=== PATIENT | female | born 1970 | race Hispanic/Latino ===

== ENCOUNTER → 2023-12-01 | Day surgery (SDC) | payer BC ==
[~2023-12-01] MED LIST: CRESTOR10 MG PO; DEXAMETHASONE SOD PHOS INJ 4 MG/ML SDV ONE; FENTANYL CITRATE/PF 100MCG/2 ML INJ ONE; GINGER250 MG PO; GLIMEPIRIDE2 MG PO; IOPAMIDOL 610MG/1ML 300 MG/ML VIAL IV ONE; LANTANOPROST OD; LIDOCAINE HCL 2% LOCAL INJ 5 ML SDV VIAL INJ ONE; LOSARTAN POTASS25 MG PO; MULTI-VITAMIN1 EACH PO; OMEPRAZOLE40 MG PO; ONDANSETRON HCL INJ 2MG/ML 2ML 2 MG/ML VIAL ONE; PIOGLITAZONE HC45 MG PO; PROPOFOL IV EMULSION 10 MG/ML 20 ML VIAL ONE; SEVOFLURANE INHAL SOLN 250 ML PEN BTL ONE; TALTZ SYRI80 MG/1 ML IM; TUMERIC PO; XIGDUO XR 10 M1 EAC1 PO; [UNRECOGNIZED DRUG - OTHER] PO
[2023-12-01] MEDS: GENTAMICIN 80MG/NS 100 ML 200 ML IV ONE (06:10)
[2023-12-01] MEDS: LACTATED RINGER'S 1,000 ML ONE (06:10)
[2023-12-01 06:28] LABS: BASOPHILS # (AUTO) 0.1 (0.0-0.1); BASOPHILS % 0.8 % (0.0-1.0); EOSINOPHILS # (AUTO) 0.5 (0.0-0.4); EOSINOPHILS % 6.4 % (0.0-6.0); HEMATOCRIT 40.7 % (34.2-44.1); HEMOGLOBIN 14.2 g/dL (12.0-16.0); LYMPHOCYTES # (AUTO) 2.2 (1.0-3.2); LYMPHOCYTES % 28.3 % (18.0-39.1); MEAN CORPUSCULAR HEMOGLOBIN 30.9 pg (28-32); MEAN CORPUSCULAR HGB CONC 34.9 g/dL (31-35); MEAN CORPUSCULAR VOLUME 88.5 fL (81-99); MONOCYTES # (AUTO) 0.6 (0.2-0.8); MONOCYTES % 8.4 % (4.4-11.3); NEUTROPHILS # (AUTO) 4.3 (2.1-6.9); PLATELET COUNT 265 x10e3/uL (140-360); RED CELL DISTRIBUTION WIDTH 11.9 % (11.7-14.4)
[2023-12-01 07:04] LABS: ANION GAP 14.6 mmol/L (8-16); CALCIUM 9.3 mg/dL (8.4-10.2); CREATININE, SERUM 0.76 mg/dL (0.57-1.11); POTASSIUM 3.6 mmol/L (3.5-5.1); URIC ACID 3.1 mg/dL (2.6-8.0)
[2023-12-01] MEDS: PHENAZOPYRIDINE HCL 100 MG TAB ONE (09:47)
[2023-12-01] MEDS: ACETAMINOPHEN 1000 MG/100 ML 100 ML IV ONE (09:54)
[2023-12-01] MEDS: FENTANYL CITRATE/PF 100MCG/2 ML INJ ONE (10:02)
[2023-12-01 10:10] VITALS: TEMP 97.4
[2023-12-01 10:30] VITALS: BP 146/89; PULSE 65; RESP 16; O2SAT 100
[2023-12-03 11:13] LABS: CALCIUM 9.3 mg/dL (8.7-10.2)
== END | disposition home or self-care (01) ==
LOC: OR 05:36
PROVIDERS: ATTEND Urology
DX: N13.2 Hydronephrosis with renal and ureteral calculous obstruction (principal); N39.0 Urinary tract infection, site not specified; N95.2 Postmenopausal atrophic vaginitis; R81 Glycosuria; E11.9 Type 2 diabetes mellitus without complications; I10 Essential (primary) hypertension; E78.5 Hyperlipidemia, unspecified; K21.9 Gastro-esophageal reflux disease without esophagitis; Z88.1 Allergy status to other antibiotic agents; Z88.0 Allergy status to penicillin; Z88.2 Allergy status to sulfonamides; Z79.84 Long term (current) use of oral hypoglycemic drugs; Z79.899 Other long term (current) drug therapy
CPT/HCPCS: 36415; 50590; 74018; 80048; 83970; 84550; 85025; 87086; 93005; C1758; C1769; C2617; J1100; J1580; J2001; J2405

== ENCOUNTER → 2024-03-10 | Day surgery (SDC) | payer BC ==
[~2024-03-10] MED LIST changes: +ACETAMINOPHEN 1000 MG/100 ML IV ONE; +DEXMEDETOMIDINE HCL 200 MCG/2 ML VIAL ONE; +DEXTROSE 5% 250ML 250 ML IV ONE; +FAMOTIDINE 20 MG/2 ML VIAL IV ONE; +GENTAMICIN 80MG/NS 100 ML 200 ML IV ONE; +MIDAZOLAM HCL 2 MG/2 ML VIAL ONE; +PANTOPRAZOLE SO40 MG PO; +TRICOR145 MG PO; +TURMERIC CURCU1 EACH PO
[2024-03-10 13:25] LABS: BASOPHILS % 0.5 % (0.0-1.0); EOSINOPHILS # (AUTO) 0.4 (0.0-0.4); EOSINOPHILS % 4.8 % (0.0-6.0); HEMATOCRIT 44.8 % (34.2-44.1); HEMOGLOBIN 14.4 g/dL (12.0-16.0); LYMPHOCYTES # (AUTO) 2.3 (1.0-3.2); LYMPHOCYTES % 26.6 % (18.0-39.1); MEAN CORPUSCULAR HEMOGLOBIN 30.2 pg (28-32); MEAN CORPUSCULAR HGB CONC 32.1 g/dL (31-35); MEAN CORPUSCULAR VOLUME 93.9 fL (81-99); MONOCYTES # (AUTO) 0.5 (0.2-0.8); MONOCYTES % 6.2 % (4.4-11.3); NEUTROPHILS # (AUTO) 5.3 (2.1-6.9); NEUTROPHILS % 61.7 % (38.7-80.0); PLATELET COUNT 331 x10e3/uL (140-360); RED BLOOD COUNT 4.77 x10e6/uL (3.6-5.1); RED CELL DISTRIBUTION WIDTH 12.3 % (11.7-14.4)
[2024-03-10 14:10] LABS: ANION GAP 14.6 mmol/L (8-16); CALCIUM 10.5 mg/dL (8.4-10.2); CREATININE, SERUM 0.92 mg/dL (0.57-1.11); POTASSIUM 4.6 mmol/L (3.5-5.1); URIC ACID 3.2 mg/dL (2.6-8.0)
[2024-03-10] MEDS: LACTATED RINGER'S 1,000 ML ONE (14:18)
[2024-03-10] MEDS: CEFTRIAXONE 1 GM VIAL ONE (14:18)
[2024-03-10 16:31] VITALS: TEMP 97.7
[2024-03-10] MEDS: PHENAZOPYRIDINE HCL 100 MG TAB ONE (16:57)
[2024-03-10 17:35] VITALS: BP 152/80; PULSE 73; RESP 15; O2SAT 98
== END | disposition home or self-care (01) ==
LOC: OR 12:45
PROVIDERS: ATTEND Urology
DX: N20.1 Calculus of ureter (principal); N20.0 Calculus of kidney; Z46.6 Encounter for fitting and adjustment of urinary device; N81.10 Cystocele, unspecified; N81.6 Rectocele; N36.41 Hypermobility of urethra; N95.2 Postmenopausal atrophic vaginitis; E11.9 Type 2 diabetes mellitus without complications; I10 Essential (primary) hypertension; E78.5 Hyperlipidemia, unspecified; L40.50 Arthropathic psoriasis, unspecified; Z88.1 Allergy status to other antibiotic agents; Z88.0 Allergy status to penicillin; Z88.2 Allergy status to sulfonamides; Z79.84 Long term (current) use of oral hypoglycemic drugs; Z79.899 Other long term (current) drug therapy; Z86.16 Personal history of COVID-19
CPT/HCPCS: 36415; 52356; 74018; 74420; 80048; 82948; 84550; 85025; 87086; 88300; 93005; C1758; C1766; C1769; J0131; J0696; J1100; J1580; J2001; J2250; J2405; J2704; J3010; J7121; Q9967

== ENCOUNTER → 2024-03-29 | Day surgery (SDC) | payer BC ==
[~2024-03-29] MED LIST changes: -ACETAMINOPHEN 1000 MG/100 ML IV ONE; -DEXMEDETOMIDINE HCL 200 MCG/2 ML VIAL ONE; -FAMOTIDINE 20 MG/2 ML VIAL IV ONE
[2024-03-29 08:51] LABS: BASOPHILS # (AUTO) 0.1 (0.0-0.1); BASOPHILS % 0.6 % (0.0-1.0); EOSINOPHILS # (AUTO) 0.5 (0.0-0.4); EOSINOPHILS % 6.2 % (0.0-6.0); HEMATOCRIT 41.8 % (34.2-44.1); HEMOGLOBIN 13.4 g/dL (12.0-16.0); LYMPHOCYTES # (AUTO) 2.3 (1.0-3.2); LYMPHOCYTES % 28.8 % (18.0-39.1); MEAN CORPUSCULAR HEMOGLOBIN 30.5 pg (28-32); MEAN CORPUSCULAR HGB CONC 32.1 g/dL (31-35); MEAN CORPUSCULAR VOLUME 95.2 fL (81-99); MONOCYTES # (AUTO) 0.6 (0.2-0.8); MONOCYTES % 7.9 % (4.4-11.3); NEUTROPHILS # (AUTO) 4.4 (2.1-6.9); PLATELET COUNT 272 x10e3/uL (140-360); RED BLOOD COUNT 4.39 x10e6/uL (3.6-5.1); RED CELL DISTRIBUTION WIDTH 12.1 % (11.7-14.4)
[2024-03-29 09:08] LABS: ANION GAP 14.4 mmol/L (8-16); CALCIUM 10.1 mg/dL (8.4-10.2); CREATININE, SERUM 0.8 mg/dL (0.57-1.11); POTASSIUM 4.4 mmol/L (3.5-5.1)
[2024-03-29] MEDS: LACTATED RINGER'S 1,000 ML ONE (09:18)
[2024-03-29 13:05] VITALS: TEMP 97.5
[2024-03-29] MEDS: PHENAZOPYRIDINE HCL 100 MG TAB ONE (13:37)
[2024-03-29 14:00] VITALS: BP 136/77; PULSE 67; RESP 18; O2SAT 97
== END | disposition home or self-care (01) ==
LOC: OR 08:30
PROVIDERS: ATTEND Urology
DX: N20.0 Calculus of kidney (principal); Z46.6 Encounter for fitting and adjustment of urinary device; N81.10 Cystocele, unspecified; N81.6 Rectocele; N36.41 Hypermobility of urethra; N95.2 Postmenopausal atrophic vaginitis; N28.89 Other specified disorders of kidney and ureter; I10 Essential (primary) hypertension; E78.5 Hyperlipidemia, unspecified; E11.9 Type 2 diabetes mellitus without complications; E66.01 Morbid (severe) obesity due to excess calories; L40.50 Arthropathic psoriasis, unspecified; Z88.1 Allergy status to other antibiotic agents; Z88.0 Allergy status to penicillin; Z88.2 Allergy status to sulfonamides; Z79.84 Long term (current) use of oral hypoglycemic drugs; Z79.899 Other long term (current) drug therapy
CPT/HCPCS: 36415; 52352; 74018; 74420; 80048; 82948; 84550; 85025; 87086; 88300; C1758; J1100; J1580; J2003; J2250; J2405; J2704; J3010; J7121; Q9967